=== PATIENT | male | born 1955 | race Caucasian/White ===

== ENCOUNTER 2018-11-22 05:47 | Inpatient (IN) ==
--- NOTE | 2018-11-14 09:32 | Anesthesiology Consultation ---
Date of Service November 14, 2018 Assessment & Plan (1) Encounter for pre-operative examination: Chart Review Chart Review: Acceptable Risk for Surgery and Patient seen in Pre Admission Testing Teaching & Discussion Pre-Anesthesia Teaching/Discussion Notes: Instructed NPO after midnight before surgery,except medications with 15 cc of water. Medication instructions provided according to the PAT guidelines. History Surgery Operation Date: 11/22/18 07:45 Proposed Procedures p L5-S1 Transforaminal Lumbar Interbody Fusion, L2-L5 Hardware Removal, Spinal Cord Monitoring - Jonathon Modi DO Height/Weight Height: 5 ft 9 in Weight: 94.1 kg Allergies Allergy/AdvReac Type Severity Reaction Status Date / Time No Known Allergies Allergy Verified 11/10/18 16:23 Medications Home Medications Medication Instructions Recorded Confirmed Last Taken ibuprofen 800 mg PO TID PRN 11/10/18 11/10/18 Unknown omega 7-orn-vvv-fish oil [Fish Oil] 1 cap PO DAILY 11/10/18 11/10/18 Unknown Past Medical History Medical History Chronic back pain b/l LE radiculopathy, neuropathy feet Herniated intervertebral disc of lumbar spine Osteoarthritis Sleep apnea CPAP Exercise / Class Metabolic Activity II 4-5 Yardwork/Stairs/Walk up hill Past Family History Family History Mother Family history of diabetes mellitus Past Surgical History Surgical History Fusion of spine 06/06/12: L2-L5 decompression, L2-L5 fusion, L4-L5 PEEK cage= MAC#3, ETT 7.5 at [facility] History of colonoscopy Past Anesthesia History No Hx of Anesthesia Complications and No Family Hx of Anesthesia Complications History of PONV No Hx of PONV and No Hx of Motion Sickness Social History Smoking Status: Current every day smoker tobacco type: cigarettes Smoking cigarettes per day: 10+ cigarettes/day x 35 years ago Do You Dip or Chew Tobacco: No Hx Alcohol Use: Yes Alcohol type: beer alcohol intake frequency: a few times a week Hx Substance Use: No substance use type: does not use Review of Systems Patient denies chest pain, shortness of breath, dyspnea on exertion, reflux, cough, wheezing, palpitations. Physical Exam Vital Signs VITALS BP 165/99; recheck 167/94- Per patient, BP has been elevated in recent setting of worsening lumbar pain; Patient advised to followup with PCP regarding elevated BP. P 71 TEMP 97.4 SP02 95%RA RESP 18 PHYSICAL Full neck and c-spine range of motion. Full TMJ range of motion. 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 Testing Laboratory Results 11/14/18 09:45 11/14/18 09:45 PT 10.5 Seconds (9.0-12.0) 11/14/18 09:45 INR 1.0 (0.9-1.1) 11/14/18 09:45 APTT 27.6 Seconds (21.0-31.0) 11/14/18 09:45 Urine Color Yellow 11/14/18 09:45 Urine Appearance Clear (Clear) 11/14/18 09:45 Urine pH 5.5 (4.5-7.5) 11/14/18 09:45 Ur Specific [place] 1.013 (1.000-1.030) 11/14/18 09:45 Urine Protein Trace (Negative) H 11/14/18 09:45 Urine Glucose (UA) Negative (Negative) 11/14/18 09:45 Urine Ketones Negative (Negative) 11/14/18 09:45 Urine Nitrite Negative (Negative) 11/14/18 09:45 Ur Leukocyte Esterase Negative (Negative) 11/14/18 09:45 Urine WBC (Auto) 1-5 /hpf (0-5) 11/14/18 09:45 Urine RBC (Auto) 0-4 /hpf (0-4) 11/14/18 09:45 U Hyaline Cast (Auto) 0 /lpf (0-5) 11/14/18 09:45 U Epithel Cells (Auto) 0-5 /lpf (0-5) 11/14/18 09:45 Urine Bacteria (Auto) Negative (Negative) 11/14/18 09:45 Blood Type O Positive 11/14/18 09:45 Antibody Screen NEGATIVE 11/14/18 09:45 Electrocardiogram Date: 11/14/18 NSR at 70bpm. LAD. (unconfirmed EKG). Chest X-Ray Date: 11/14/18 Findings: + NAD
--- NOTE | 2018-11-14 09:38 | PAT Medication Instructions ---
Medication Instructions Date of Service November 14, 2018 Home Medications ibuprofen 800 mg PO TID PRN omega 1-jyx-wum-fish oil [Fish Oil] 1 cap PO DAILY ASK your surgeon for instructions ibuprofen 800 mg PO TID PRN STOP taking 2 weeks before surgery (or as soon as possible if surgery is within 2 weeks) omega 7-uzp-rtr-fish oil [Fish Oil] 1 cap PO DAILY Other Notes If you have any questions please call us at [phone] or [phone] or [phone] or [phone]
--- NOTE | 2018-11-14 10:08 | XRay Report ---
XR chest Pre-admission PA/Lat HISTORY: Preop. COMPARISON: Chest 06/01/2012. FINDINGS: The lungs are clear. Cardiac silhouette is normal in size. No pleural effusions. No pneumot horax. Lumbar spinal fusion hardware is partially visualized. IMPRESSION: No acute process. Electronically signed by: Francois Laws M.D. 11/14/2018 10:07 AM
[2018-11-14 10:56] LABS: Basophils # (auto) 0.05 K/uL (0-0.2); Basophils % (auto) 0.5 %; Eosinophils # (auto) 0.26 K/uL (0-0.5); Eosinophils % (auto) 2.6 %; Hematocrit (blood only) 50.9 % (42-52); Hemoglobin 18.4 g/dL (14.0-18.0); Immature Granulocytes # (auto) 0.06 K/uL (0.00-0.02); Immature Granulocytes % (auto) 0.6 %; Lymphocytes # (auto) 2.07 K/uL (1.2-3.4); Lymphocytes % (auto) 20.8 %; Mean Corpuscular Hemoglobin 32.3 pg (25-34); Mean Corpuscular Hgb Conc 36.1 g/dL (32-36); Mean Corpuscular Volume 89.3 fL (80-100); Mean Platelet Volume 10.6 fL (7.4-10.4); Monocytes # (auto) 0.82 K/uL (0.11-0.59); Monocytes % (auto) 8.3 %; Neutrophils # (auto) 6.67 K/uL (1.4-6.5); Neutrophils % (auto) 67.2 %; Platelet Count 177 K/uL (130-400); RDW Coefficient of Variation 13.6 % (11.5-14.5); RDW Standard Deviation 44.3 fL (36.4-46.3); White Blood Count 9.93 K/uL (4.8-10.8)
[2018-11-14 10:59] LABS: Appearance Urine Clear (Clear); Bacteria Urine Automated Negative (Negative); Bilirubin Urine Negative (Negative); Blood Urine Trace (Negative); Cast Urine Automated 0 /lpf (0-5); Color Urine Yellow; Epithelial Cell Urine Auto 0-5 /lpf (0-5); Glucose Urine UA Negative (Negative); Ketones Urine Negative (Negative); Leukocyte Esterase Urine Negative (Negative); Nitrite Urine Negative (Negative); Protein Urine Trace (Negative); RBC Urine Automated 0-4 /hpf (0-4); Specific Gravity Urine 1.013 (1.000-1.030); Urobilinogen Urine Negative (Negative); pH Urine 5.5 (4.5-7.5)
[2018-11-14 11:07] LABS: Partial Thromboplastin Time 27.6 Seconds (21.0-31.0); Prothrombin Time 10.5 Seconds (9.0-12.0)
[2018-11-14 13:15] LABS: BUN Creatinine Ratio 15.2 (10-20); Calcium 9.4 mg/dl (8.5-10.1); Creatinine Clr Calc Pharmacy 69.8 ml/min; Est GFR (African American) 72.9; Est GFR (Non-African American) 62.9
[2018-11-22] MEDS ORDERED: CEFAZOLIN 2000MG 2,000 MG/15 ML SYR IV SCH (06:00)
[2018-11-22] MEDS ORDERED: CeleBREX 200 MG CAP PO SCH (06:00)
[2018-11-22] MEDS ORDERED: ACETAMINOPHEN 500 MG TAB PO SCH (06:00)
[2018-11-22] MEDS ORDERED: GABAPENTIN 600 MG DOSE PO SCH (06:00)
[2018-11-22] MEDS ORDERED: LR 15ML/HR IV SCH (06:00)
[2018-11-22] MEDS ORDERED: fentaNYL citrate 100 MCG/2 ML VIAL ONE (06:41)
[2018-11-22] MEDS ORDERED: MIDAZOLAM HCL 1 MG/ML 2ML VIAL ONE (06:41)
[2018-11-22] MEDS ORDERED: DEXAMETHASONE SOD INJ 4 MG/ML VIAL ONE (06:41)
[2018-11-22] MEDS ORDERED: PROPOFOL IV EMULSION 10 MG/ML 20 ML VIAL IV ONE (06:41)
[2018-11-22] MEDS ORDERED: LIDOCAINE HCL 2% 2 ML VIAL/AMP(20MG/ML) INFIL ONE (06:41)
[2018-11-22] MEDS ORDERED: ROCURONIUM BROMIDE 10 MG/ML 5 ML VIAL ONE ×2 (06:41→09:30)
[2018-11-22] MEDS ORDERED: ONDANSETRON INJ 2 MG/ML 2 ML VIAL ONE (06:41)
--- NOTE | 2018-11-22 07:35 | History & Physical Bridge Note ---
Date of Service November 22, 2018 History & Physical Bridge Note I have examined the patient, reviewed the History & Physical and in the interval since the performance of the History & Physical I have noted the following changes of clinical significance: no changes noted
--- NOTE | 2018-11-22 07:36 | History & Physical Report ---
Date of Service November 22, 2018 Assessment & Plan (1) Spinal stenosis, lumbar region with neurogenic claudication: Transforaminal lumbar interbody fusion L5-S1 hardware removal L2-L5 Present on Admission?: Yes History of Present Illness Chief Complaint: Back and leg pain Primary Care Provider: Gerard Giles DO This is a 62-year-old male well-known to me that presents with worsening back and leg pain. Failing extensive course of nonoperative care is here for surgical intervention. Allergies Allergy/AdvReac Type Severity Reaction Status Date / Time No Known Allergies Allergy Verified 11/22/18 06:15 Home Medications Home Medications Medication Instructions Recorded Confirmed Type ibuprofen 800 mg PO TID PRN 11/10/18 11/22/18 History omega 4-ghw-epg-fish oil [Fish Oil] 1 cap PO DAILY 11/10/18 11/22/18 History Past Med/Surg History Medical History Chronic back pain b/l LE radiculopathy, neuropathy feet Herniated intervertebral disc of lumbar spine Osteoarthritis Sleep apnea CPAP Surgical History Fusion of spine 06/06/12: L2-L5 decompression, L2-L5 fusion, L4-L5 PEEK cage= MAC#3, ETT 7.5 at [facility] History of colonoscopy Family History Mother Family history of diabetes mellitus Social History Preferred Language: [place] Communication Ability: Effective 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 Results & Data Vital Signs (Past 12 Hours) Vital Signs Temp Pulse Resp BP Pulse Ox 11/22/18 06:09 36.6 C 79 20 174/89 H 92
[2018-11-22] MEDS ORDERED: BUPIVACAINE/EPINEPHRINE 0.5% MPF 1:200,000 30 ML VIAL ONE (07:41)
[2018-11-22] MEDS ORDERED: BACITRACIN INJ 50,000 UNIT VIAL ONE (07:41)
[2018-11-22] MEDS ORDERED: ePHEDrine sulfate 50 MG/ML AMP IV PRN (07:45)
[2018-11-22] MEDS ORDERED: ONDANSETRON INJ 2 MG/ML 2 ML VIAL IV PRN ×2 (07:45→12:33)
[2018-11-22] MEDS ORDERED: PROMETHAZINE HCL 6.25 MG in SODIUM CHLORIDE 0.9% 50 ML IV PRN (07:45)
[2018-11-22] MEDS ORDERED: ATROPINE SULFATE 0.1 MG/ML 10ML SYR IV PRN (07:45)
[2018-11-22] MEDS ORDERED: ePHEDrine sulfate 50 MG/ML SYR ONE (08:31)
[2018-11-22] MEDS ORDERED: HYDROmorphone INJ 2 MG/ML SYR/VIAL ONE (08:32)
[2018-11-22] MEDS ORDERED: FLOSEAL HEMOSTATIC MATRIX 10ML TOP ONE (08:32)
[2018-11-22] MEDS ORDERED: NEOSTIGMINE METHYLSULFATE 1 MG/ML 10ML VIAL ONE (10:32)
[2018-11-22] MEDS ORDERED: GLYCOPYRROLATE 0.2 MG/ML VIAL ONE (10:32)
--- NOTE | 2018-11-22 10:43 | Fluoroscopy Report ---
FL lumbar spine 2-3V CLINICAL HISTORY: L2-L5 HARDWARE REMOVAL, L5-S1 INTERBODY FUSION COMPARISON STUDY: None. FLUOROSCOPY TIME: 14 seconds.. FINDINGS: 2 fluoroscopic spot images of the lower lumbar spine demonstrate posterior decompression fu giselle at L5-S1 with pedicle screws and rods. The hardware appears intact. IMPRESSION: Posterior decompression fusion at L5-S1. No evidence for hardware complication. Electronically signed by: Francois Laws M.D. 11/22/2018 10:42 AM
--- NOTE | 2018-11-22 10:56 | Operative Report ---
Post Operative Report Pre & Post Diagnosis Operation Date: 11/22/18 07:45 Pre-Op Diagnosis: Spinal stenosis, lumbar region with neurogenic claudication Post-Op Diagnosis: Spinal stenosis, lumbar region with neurogenic claudication Procedure Operation Date: 11/22/18 07:45 Actual Procedures #1 removal of posterior segmental instrumentation L2-L5. #2 exploration of fusion L2-5. #3 lumbar decompression with bilateral medial facetectomies and foraminotomies L5-S1. #4 posterior spinal fusion L5-S1. #5 placement posterior instrumentation L5-S1. #6 interbody fusion L5-S1. #7 placement of titanium 12 x 26 mm cage at L5-S1. #8 placement of local autograft in the posterior lateral gutters L5-S1. #9 placement infuse collagen sponge, mass graft in the posterior gutters and ostial amp and interbody space. Surgeon Jonathon Modi DO Catering Administrative Assistant Donna Hodges Estimated Blood Loss 250 Findings Consistent with Post-Op Diagnosis Specimens None Indications This is a 62-year-old male who presents with above-mentioned diagnosis after failing extensive course of nonoperative care is here for surgical intervention. Description of Procedure Patient was met with identified and informed consent obtained. Patient was then taken to the operative suite underwent intubation placed in a prone position the Skip table on top of the Osmany frame. All bony prominences well-padded eyes inspected to ensure no external pressure placed upon the peer at this point the lumbar spine is prepped and draped in a normal sterile fashion. Sharp dissection with the assistance of Bovie cautery was performed down to and exposing the instrumentation L2 L3-L4-L5 bilaterally including the lamina of L5 transverse processes of L5 and the bilateral sacral ala. Then proceeded to remove the hardware bilaterally from L2-L5 explored the fusion mass noting it to be intact. And then performed a complete laminectomy of L5 including bilateral medial facetectomies and foraminotomies addressing severe stenosis. Pedicle screws were then placed in L5 and S1 levels bilaterally with assistance of fluoroscopy the process petrona placed. By way of a transforaminal portion right complete discectomy was performed endplates curetted to subcortical being bone and a 12 x 26 mm titanium cage filled with osteo-amp bone graft tapped in position. The rods were then locked in final position bilaterally. The transverse processes of L5 and sacral ala bur to subcortical bleeding bone. Infuse collagen sponge master graft and local autograft placed in the posterior gutters. 15 round ELMER drain inserted. The incision was then closed with 1 Vicryl in the fascia 2-0 Vicryl subcutaneously and 4 Monocryl for final skin closure. Steri-Strip sterile dressings placed. Patient will continue to PACU stable condition. Please note spinal cord monitoring was utilized that the procedure no changes noted I attest to the content of the Intraoperative Record and any orders documented therein. Any exceptions are noted below.
[2018-11-22] MEDS ORDERED: LABETALOL HCL IV 5 MG/ML 20ML IV ONE (11:09)
[2018-11-22] MEDS: fentaNYL citrate 100 MCG/2 ML VIAL IV PRN ×2 (11:16→11:25)
[2018-11-22] MEDS: HYDROmorphone INJ 2 MG/ML SYR/VIAL IV PRN ×2 (11:36→11:44)
--- NOTE | 2018-11-22 11:48 | Anesthesiology Progress Note ---
Date of Service November 22, 2018 Anesthesia Post Procedure Vital Signs Vital Signs: Temp Pulse Pulse Resp BP Pulse Ox 11/22/18 11:40 76 12 152/83 H 94 11/22/18 11:30 73 12 153/89 H 96 11/22/18 11:20 73 12 149/86 H 96 11/22/18 11:10 82 12 156/103 H 96 11/22/18 11:02 36.0 C L 83 12 131/85 97 11/22/18 06:09 36.6 C 79 20 174/89 H 92 Pain Intensity Back: Pain Intensity: 9 Bilateral Hip: Pain Intensity: 7 Transfer of Care Handoff Completed per policy Notes Mental Status: alert / awake / arousable Patient Amnestic to Procedure: Yes Nausea / Vomiting: adequately controlled Pain: adequately controlled Airway Patency, RR, SpO2: stable & adequate BP & HR: stable & adequate Hydration State: stable & adequate Anesthetic Complications: no major complications apparent
[2018-11-22] MEDS ORDERED: METOCLOPRAMIDE HCL INJ 5 MG/ML 2 ML VIAL IV PRN (12:33)
[2018-11-22] MEDS ORDERED: TRAMADOL HCL 50 MG TABLET PO PRN (12:33)
[2018-11-22] MEDS ORDERED: ACETAMINOPHEN 1,000 MG/100 ML VIAL IV PRN (12:33)
[2018-11-22] MEDS ORDERED: FAMOTIDINE 20 MG TAB PO PRN (12:33)
[2018-11-22] MEDS ORDERED: ALUMINUM/MAGNESIUM SUSP 30 ML UDC PO PRN (12:33)
[2018-11-22] MEDS ORDERED: NALOXONE HCL 0.4 MG/1 ML VIAL/CARP IV PRN (12:33)
[2018-11-22] MEDS ORDERED: BISACODYL 10 MG SUPP PR PRN (12:33)
[2018-11-22] MEDS ORDERED: SOD PHOSPHATE/SOD BIPHOSPHATE ENEMA 132 ML BTL PR PRN (12:33)
[2018-11-22] MEDS ORDERED: MAGNESIUM HYDROXIDE SUSP 30 ML UDC PO PRN (12:33)
[2018-11-22] MEDS ORDERED: HYDROmorphone INJ 0.5 MG/0.5 ML SYR IV PRN (12:33)
[2018-11-22] MEDS ORDERED: PROMETHAZINE HCL 12.5 MG in SODIUM CHLORIDE 0.9% 50 ML IV PRN (12:33)
[2018-11-22] MEDS ORDERED: LORazepam 0.5 MG/1 ML VIAL IV PRN (12:33)
[2018-11-22] MEDS ORDERED: DO NOT ADMINISTER PNEUMOCOCCAL VACCINE PRN (12:33)
[2018-11-22] MEDS ORDERED: ACETAMINOPHEN 500 MG TAB PO PRN (12:33)
[2018-11-22] MEDS ORDERED: ONDANSETRON 4 MG TAB PO PRN (12:33)
[2018-11-22] MEDS ORDERED: LORazepam 0.5 MG TAB PO PRN (12:33)
[2018-11-22] MEDS ORDERED: DO NOT ADMINISTER FLU VACCINE PRN (12:33)
[2018-11-22] MEDS: LACTATED RINGER'S 1,000 ML IV SCH ×2 (13:15→20:29)
[2018-11-22] MEDS: KETOROLAC 30 MG/ML VIAL IV SCH ×2 (13:16→19:14)
[2018-11-22] MEDS: CEFAZOLIN 2000MG 2,000 MG/15 ML SYR IV SCH (15:35)
[2018-11-22] MEDS: DOCUSATE SODIUM/SENNA 50/8.6MG TAB PO SCH (20:32)
[2018-11-23] MEDS: CEFAZOLIN 2000MG 2,000 MG/15 ML SYR IV SCH (00:34)
[2018-11-23] MEDS: KETOROLAC 30 MG/ML VIAL IV SCH ×2 (02:27→08:30)
[2018-11-23] MEDS: LACTATED RINGER'S 1,000 ML IV SCH (02:34)
[2018-11-23] MEDS: POLYETHYLENE (MIRALAX) 17 GM PACK PO SCH ×3 (05:22→17:51)
[2018-11-23 05:49] LABS: Basophils # (auto) 0.01 K/uL (0-0.2); Basophils % (auto) 0.1 %; Hematocrit (blood only) 39.5 % (42-52); Hemoglobin 13.4 g/dL (14.0-18.0); Immature Granulocytes # (auto) 0.09 K/uL (0.00-0.02); Immature Granulocytes % (auto) 0.5 %; Lymphocytes # (auto) 1.44 K/uL (1.2-3.4); Lymphocytes % (auto) 7.7 %; Mean Corpuscular Hemoglobin 30.3 pg (25-34); Mean Corpuscular Hgb Conc 33.9 g/dL (32-36); Mean Corpuscular Volume 89.4 fL (80-100); Mean Platelet Volume 10.1 fL (7.4-10.4); Monocytes # (auto) 1.37 K/uL (0.11-0.59); Monocytes % (auto) 7.3 %; Neutrophils # (auto) 15.86 K/uL (1.4-6.5); Neutrophils % (auto) 84.4 %; Platelet Count 176 K/uL (130-400); RDW Coefficient of Variation 13.1 % (11.5-14.5); RDW Standard Deviation 42.5 fL (36.4-46.3); Red Blood Count 4.42 M/uL (4.7-6.1); White Blood Count 18.77 K/uL (4.8-10.8)
[2018-11-23 06:23] LABS: BUN Creatinine Ratio 16.8 (10-20); Calcium 8.1 mg/dl (8.5-10.1); Creatinine Clr Calc Pharmacy 81.2 ml/min; Est GFR (African American) 88.6; Est GFR (Non-African American) 76.4
--- NOTE | 2018-11-23 08:25 | Anesthesiology Progress Note ---
Date of Service November 23, 2018 Anesthesia Post Procedure Vital Signs Vital Signs: Temp Pulse Pulse Resp BP Pulse Ox 11/23/18 08:09 73 18 149/79 H 95 11/23/18 04:01 36.9 C 68 18 136/80 96 11/22/18 23:33 36.5 C 66 18 143/83 H 97 11/22/18 19:20 36.5 C 69 18 123/73 94 11/22/18 15:20 36.5 C 80 18 121/73 98 11/22/18 14:03 74 18 130/81 96 11/22/18 13:27 77 16 130/81 97 11/22/18 12:57 78 16 127/78 97 11/22/18 12:20 36.9 C 75 14 146/87 H 93 11/22/18 12:15 80 12 132/85 94 11/22/18 12:00 36.8 C 75 12 134/87 97 11/22/18 11:50 74 12 140/81 96 11/22/18 11:40 76 12 152/83 H 94 11/22/18 11:30 73 12 153/89 H 96 11/22/18 11:20 73 12 149/86 H 96 11/22/18 11:10 82 12 156/103 H 96 11/22/18 11:02 36.0 C L 83 12 131/85 97 Pain Intensity Back: Pain Intensity: 4 Bilateral Hip: Pain Intensity: 4 Notes Mental Status: alert / awake / arousable and participated in evaluation Patient Amnestic to Procedure: Yes Nausea / Vomiting: adequately controlled Pain: adequately controlled Airway Patency, RR, SpO2: stable & adequate BP & HR: stable & adequate Hydration State: stable & adequate Neuraxial Anesthesia: was administered and sensory block resolved
--- NOTE | 2018-11-23 09:53 | Orthopedic Progress Note ---
Date of Service November 23, 2018 Assessment & Plan (1) Spinal stenosis, lumbar region with neurogenic claudication: At this time we will continue physical therapy monitor his ELMER output anticipate discharge home Wednesday. Present on Admission?: Yes Subjective Patient's back pain is well controlled leg symptoms markedly improved. Physical Exam Physical Exam: Patient is in the chair at the bedside. She is good strength testing. Appears very comfortable. Results & Data Vital Signs (Past 12 Hours) Vital Signs Temp Pulse Resp BP Pulse Ox 11/23/18 08:09 73 18 149/79 H 95 11/23/18 04:01 36.9 C 68 18 136/80 96 11/22/18 23:33 36.5 C 66 18 143/83 H 97
[2018-11-23] MEDS: DOCUSATE SODIUM/SENNA 50/8.6MG TAB PO SCH (20:57)
[2018-11-24] MEDS: OXYCODONE HCL IR 5 MG TAB (IMMEDIATE RELEASE) PO PRN ×5 (01:55→22:02)
--- NOTE | 2018-11-24 08:43 | Orthopedic Progress Note ---
Date of Service November 24, 2018 Assessment & Plan (1) Spinal stenosis, lumbar region with neurogenic claudication: At this time we will continue physical therapy monitor his ELMER output anticipate discharge home tomorrow. He is encouraged to take pain medication when necessary. Present on Admission?: Yes Subjective Patient's back pain is controlled leg pain markedly improved. Physical Exam Physical Exam: Patient is standing and walking without difficulty. Appears comfortable this morning. Results & Data Vital Signs (Past 12 Hours) Vital Signs Temp Pulse Resp BP Pulse Ox 11/24/18 06:03 37.0 C 77 16 133/78 95 11/23/18 23:15 36.7 C 70 18 127/72 99
[2018-11-24] MEDS: DOCUSATE SODIUM/SENNA 50/8.6MG TAB PO SCH (22:02)
[2018-11-25] MEDS: OXYCODONE HCL IR 5 MG TAB (IMMEDIATE RELEASE) PO PRN ×2 (05:05→10:07)
--- NOTE | 2018-11-25 12:25 | Discharge Summary ---
Date of Service November 25, 2018 Admission HPI Per Admitting Provider This is a 62-year-old male well-known to me that presents with worsening back and leg pain. Failing extensive course of nonoperative care is here for surgical intervention. Principal Diagnosis Lumbar spinal stenosis with neurogenic claudication Discharge Data Allergies Allergy/AdvReac Type Severity Reaction Status Date / Time No Known Allergies Allergy Verified 11/22/18 06:15 Consultations 11/22/18 12:33 Consult Case Management - Discharge Planning Routine Procedures Performed Operation Date: 11/22/18 07:45 Actual Procedures p L2-L5 Hardware Removal; L5-S1 Transforaminal Lumbar Interbody Fusion, Spinal Cord Monitoring, Bone Morphogenic Protein, Osteoamp allograft, Interbody cage L5-S1(Not Applicable) - Jonathon Modi DO Ordered Studies 11/22/18 07:00 FL fluoroscopy <1hr Routine FL lumbar spine 2-3V Routine Hospital Course (1) Spinal stenosis, lumbar region with neurogenic claudication: Patient underwent lumbar decompression fusion tolerated as well as taken the orthopedic floor postoperative. Postop day 1 he was up and ambulating leg symptoms markedly improved. He progressed to postop day #2 bowels working well pain controlled ELMER drain decreased probably. Subsequently discharged home postop day #3. Discharge orders and instructions can be found the chart for further review. Total Time Total Time Spent Total Time Spent (In Minutes): 20 minutes Discharge Plan Discharge Items Patient Disposition: Home - Self-Care Reason For Visit: Other Intervertebral Disc Displacement, Lumbar Reg Discharge Diagnosis: Lumbar spinal stenosis with neurogenic claudication Discharge Goals: Improve function Activity: Per 'Additional Instructions' section Non-emergency contact: Primary Care Provider Call non-emergency contact if: you have any medication questions Follow-up/Referrals: Gerard Giles DO [Primary Care Provider] - Diet: Regular Addtl Provider Instructions: ACTIVITY RECOMMENDATIONS: SELF CARE INSTRUCTIONS AFTER THORACIC/LUMBAR FUSIONS 1. You may walk to your tolerance. It is good exercise for your legs and back. Expect some back and intermittent leg aches and pains. 2. You may perform "counter-top" level activities (make a sandwich, kiarra with a project, etc.). 3. No bending or lifting of more than 10 pounds or back twisting of any nature (roll like a log when turning in bed). 4. You may ride in a car for 20-30 minutes at a time. No driving until after your first visit with your doctor. 5. Frequent changes of position and restricting sitting to 30 minutes at a time will help limit the amount of back spasms and stiffness you may experience. 6. You may discontinue the use of ambulatory aids (cane, crutches, etc.) once your strength and confidence allow. 7. You may marine architect the shower and let water strike your incision when you arrive home at least once daily. Do not take a tub bath, sit in a hot tub or go into a swimming pool until after your first recheck in the office. SPECIAL CARE INSTRUCTIONS: VERY IMPORTANT TO READ AND REVIEW A. Your surgical incision has been closed with a cosmetic suture under the skin that will dissolve in about 6 weeks. In 14 days, you can use a pair of clean scissors and cut the suture that is left outside of the skin at the ends of your incision. 1. The small skin tapes can be removed 7 days after surgery if they have not fallen off by that point. 2. You may keep the wound open to air as much as possible to promote healing after post-op day number 5 unless told otherwise by your doctor. 3. If you think the wound looks like it is becoming infected (redness or worsening drainage) and/or you are experiencing fever, chill or worsening back pain and muscle spasms, contact the office so that we may evaluate you as soon as possible. B. Complications are uncommon, but please contact us if you have any signs or symptoms of: 1. wound infection (fever higher than 102.5 degrees F, redness, separation of wound, drainage, or increasing pain from the incision) 2. blood clots in legs (pain, swelling, redness and warmth in legs) 3. urinary tract infection (fever higher than 102.5 degrees F, burning upon urination or increased frequency of urination) 4. nerve problems (inability to walk on your toes or heels, numbness, loss of bowel or bladder control) 5. any other symptoms that concern you C. Please call the office at if you have any concerns or questions about your operation or recovery. D. No smoking! Smoking drastically decreases the chance of a solid fusion. E. Do not take any anti-inflammatory medications (Indocin, Advil, Motrin, Aspirin, Naprosyn, etc.) as these may inhibit the chance of a solid fusion. Tylenol is okay to take for pain. MANAGING PAIN AFTER SPINAL SURGERY 1. Narcotic medication is intended for short-term use and will be provided for surgical pain. Surgical pain usually lasts for a period of 4-6 weeks. Narcotic medication includes Percocet, Vicodin, Darvocet, Tylenol #3 or Lortab. 2. Longer-term pain is more appropriately treated with non-narcotic medication such as Tylenol ES. 3. Muscle spasm is not appropriately treated with narcotics. Muscle relaxers such as Soma, Flexeril or Skelaxin can be used along with Tylenol ES. 4. Remember that we all live with some "aches and pains". This is not unusual or uncommon after an injury or as we get older. a. Back pain is expected and may include muscle spasms for 4 to 6 weeks after surgery. The pain should gradually improve. If the pain worsens for no apparent reason, please contact the office. b. Intermittent leg pain may also be experienced and should not be concerned about unless it worsens for no apparent reason. If so, please contact the office. 5. We will provide appropriate medication within the normal guidelines of their prescribed use. We will also be very cautious and aware of potential abuse and extended duration of patients' medication needs. a. Pain medications are for your comfort and to assist with sleep and rest so that the tissue can heal. They are not provided in order to return to normal activity and should not be used through the day. To do so or worsening pain at night can result from ongoing tissue damage and development of tolerance to the prescribed medicine. 6. Please allow 2-3 days to process refills. Prescriptions will not be mailed but must be picked up at the office. FOLLOW UP VISIT: Keep your scheduled follow-up appointment. Any questions, please call the office at . Prescriptions: New tramadol 50 mg Tablet 50 mg PO Q4H PRN (Reason: Pain, Moderate) Qty: 30 RF: 0 oxycodone 5 mg Tablet 5 mg PO Q4H PRN (Reason: Pain, Severe) Qty: 30 RF: 0 Continued omega 9-wfo-aul-fish oil [Fish Oil] 1,000 mg (120 mg-180 mg) Capsule 1 cap PO DAILY RF: 0 Discontinued ibuprofen 800 mg Tablet 800 mg PO TID PRN (Reason: Pain) RF: 0 Stand-Alone Forms: Webs[employer], Opioid Pain Management Krames/Other Patient Handouts: Surgery Prevent DVT After Discharge Orders: Discharge Order (Routine); Ordered 11/25/18 Ordered By: Jonathon Modi Admission Data Admit Date/Time: 11/22/18 10:59 Attending Provider: Jonathon Modi Admit Provider: Jonathon Modi Primary Care Provider: Gerard Giles Service: Surgical Services Other Interventions: Discharge Summary Assessment (RN) Last Done: 11/25/18 08:02 DC Date/Time DO NOT enter until pt leaves facility: 11/25/18 11:44
== END 2018-11-25 11:44 | disposition home or self-care (01) | DRG 455 ==
LOC: ASU 05:47 → 3E 10:59